=== PATIENT | female | born 2005 | race Caucasian/White ===

== ENCOUNTER 2024-02-29 17:40 | Emergency (ER) | payer MEDICAID, OTHER ==
[~2024-02-29] VITALS: Ht 165.1 cm; Wt 99.8 kg
[2024-02-29 17:50] VITALS: O2SAT 96
[2024-02-29 18:40] LABS: BASOPHILS % 0.2 % (0.0-2.0); EOSINOPHILS % 0.1 % (0.0-5.0); HEMATOCRIT. 40.3 % (36.0-48.0); HEMOGLOBIN. 13.3 g/dL (12.0-16.0); LYMPHOCYTES % 15.1 % (20.0-50.0); MEAN CORPUSCULAR HEMOGLOBIN 29.1 pg (28.0-32.0); MEAN CORPUSCULAR VOLUME 88.1 fL (81.0-99.0); MEAN PLATELET VOLUME 8.7 fl (7.4-10.4); MONOCYTES % 11.4 % (2.0-8.0); NEUTROPHILS % 73.2 % (40.0-76.0); PLATELET 300 x1000/uL (130-400); RED BLOOD CELL COUNT 4.58 mill/uL (4.2-5.4); RED CELL DISTRIBUTION WIDTH 13.5 % (11.6-14.6); WHITE BLOOD COUNT 11.7 x1000/uL (4.5-11.0)
[2024-02-29 18:43] LABS: CHLORIDE 104 mEq/L (98-107); POTASSIUM 3.3 mEq/L (3.5-5.1); SODIUM 139 mEq/L (136-145)
[2024-02-29 18:44] LABS: CARBON DIOXIDE 26 mEq/L (21-32)
[2024-02-29 18:45] LABS: CALCIUM 9.5 mg/dL (8.7-10.4)
[2024-02-29 18:49] LABS: CREATININE 0.8 mg/dL (0.6-1.0); GLUCOSE 97 mg/dL (70-105); UREA NITROGEN BLOOD 13 mg/dL (9-23)
[2024-02-29 19:29] LABS: TROPONIN I HIGH SENSITIVITY < 4 ng/L (3.0-34)
[2024-02-29] MEDS: POTASSIUM CHLORIDE 20MEQ/PACKET PO ONE (22:45)
[2024-02-29] MEDS: ACETAMINOPHEN 325MG TABLET PO ONE (22:45)
[2024-02-29] MEDS: ONDANSETRON 4MG ODT PO ONE (22:45)
[2024-02-29 23:16] LABS: D-DIMER 0.48 mg/L FEU (<0.50); INR 1.1; PARTIAL THROMBOPLASTIN TIME 23.5 sec (23.4-31.0); PROTHROMBIN TIME 11.8 sec (9.6-11.0)
[2024-02-29 23:51] LABS: HCG SCREEN NEGATIVE
[2024-02-29] MEDS ORDERED: IBUP-2028 MT (23:58)
[2024-02-29] MEDS ORDERED: TUSSL MT (23:58)
[2024-02-29] MEDS ORDERED: AZIT250T MT (23:58)
[2024-03-01 00:15] VITALS: BP 128/59; PULSE 98; RESP 20; TEMP 36.78072; O2SAT 97
== END 2024-03-01 00:17 | disposition home or self-care (01) ==
LOC: ER 17:40
DX: J20.9 Acute bronchitis, unspecified (principal); R07.89 Other chest pain; R11.2 Nausea with vomiting, unspecified
CPT/HCPCS: 99285; 71045; 80048; 81025; 84703; 85025; 85379; 85610; 85730; 84484; 36415; 93005; Q0162

== ENCOUNTER 2025-01-11 22:33 | Emergency (ER) | payer OTHER ==
[~2025-01-11] VITALS: Ht 165.1 cm; Wt 114.0 kg
[~2025-01-11 22:33] MED LIST: AZIT250T MT; IBUP-2028 MT; TUSSL MT
[2025-01-11 22:44] VITALS: O2SAT 97
[2025-01-12] MEDS ORDERED: ALBU18HF2 IH (00:36)
[2025-01-12] MEDS ORDERED: BENZ100C86 MT (00:36)
[2025-01-12] MEDS ORDERED: CHLO3800 TP (00:49)
[2025-01-12 00:59] VITALS: BP 118/68; PULSE 80; RESP 18; TEMP 36.9; O2SAT 96
== END 2025-01-12 01:03 | disposition home or self-care (01) ==
LOC: ER 22:33
DX: J06.9 Acute upper respiratory infection, unspecified (principal); B97.89 Other viral agents as the cause of diseases classified elsewhere; J45.909 Unspecified asthma, uncomplicated
CPT/HCPCS: 71045; 99283

== ENCOUNTER 2025-02-05 15:54 | Emergency (ER) | payer OTHER ==
[~2025-02-05] VITALS: Ht 167.6 cm; Wt 105.0 kg
[~2025-02-05 15:54] MED LIST changes: +ALBU18HF2 IH; +BENZ100C86 MT; +CHLO3800 TP
[2025-02-05 16:10] VITALS: O2SAT 99
[2025-02-05 19:50] LABS: BASOPHILS % 0.4 % (0.0-2.0); EOSINOPHILS % 1.5 % (0.0-5.0); HEMATOCRIT. 39.9 % (36.0-48.0); HEMOGLOBIN. 13.0 g/dL (12.0-16.0); LYMPHOCYTES % 19.3 % (20.0-50.0); MEAN PLATELET VOLUME 8.3 fl (7.4-10.4); MONOCYTES % 5.9 % (2.0-8.0); NEUTROPHILS % 72.9 % (40.0-76.0); PLATELET 397 x1000/uL (130-400); RED BLOOD CELL COUNT 4.68 mill/uL (4.2-5.4); RED CELL DISTRIBUTION WIDTH 15.8 % (11.6-14.6)
[2025-02-05 20:07] LABS: CREATININE 0.6 mg/dL (0.6-1.0); PROTEIN TOTAL 7.7 g/dL (6.0-8.3); UREA NITROGEN BLOOD 11 mg/dL (9-23)
[2025-02-05 20:08] LABS: ASPARTATE AMINOTRANSFERASE 32 IU/L (<34)
[2025-02-05 20:09] LABS: BILIRUBIN DIRECT 0.1 mg/dL (<=3.0); BILIRUBIN TOTAL 0.4 mg/dL (0.1-1.0)
[2025-02-05 21:09] VITALS: BP 131/79; PULSE 76; RESP 17; TEMP 36.5; O2SAT 99
== END 2025-02-05 21:10 | disposition home or self-care (01) ==
LOC: ER 15:54
DX: G62.9 Polyneuropathy, unspecified (principal); J45.909 Unspecified asthma, uncomplicated; Z79.899 Other long term (current) drug therapy
CPT/HCPCS: 36415; 80048; 80076; 85025; 99283